=== PATIENT | female | born 1940 | race Caucasian/White ===

== ENCOUNTER 2020-06-03 12:11 | Inpatient (IN) | payer OTHER ==
[2020-06-03] MEDS ORDERED: Sodium Chloride 0.9% 2.5 ML Syringe FLUSH PRN (12:34)
[2020-06-03] MEDS ORDERED: Sodium Chloride 0.9% 10 ML Syringe FLUSH PRN (12:34)
--- NOTE | 2020-06-03 12:34 | EDM.PDOC ---
ED HPI GENERAL MEDICAL PROBLEM - General Chief Complaint: Respiratory Problem Stated Complaint: RESPIRATORY REFFERAL Time Seen by Provider: 06/03/20 12:12 Source of Information: Reports: Patient History Limitations: Reports: No Limitations - History of Present Illness INITIAL COMMENTS - FREE TEXT/NARRATIVE: HISTORY AND PHYSICAL: History of present illness: Patient is a 79-year-old female who presents to the emergency room with complaints of hypoxia and diarrhea. She was exposed to COVID-19 last week and had been seen in the ED in [facility] (she had a negative antibody test). Over the past few days she has had diarrhea (3-4 episodes per day) and felt generally unwell. Today she presented to our respiratory clinic and had an oxygen saturation of 89% on room air. They recommended that she come to the emergency room for evaluation. Patient states she does have oxygen at home, does use 2 L at nighttime as needed. Patient denies any fever, chills, headache, change in vision, syncope or near syncope. Denies any chest pain, back pain, shortness of breath or cough. Denies any abdominal pain, nausea, vomiting, constipation or dysuria. Has not noted any blood in urine or stool. Patient has been eating and drinking appropriately. I was able to obtain medical records from [facility]. Patient was seen and evaluated there on 05/31/2020. It is noted that the patient is currently living in [place] but in [facility] visiting family. Due to the COVID pandemic she has been residing in [place] with her daughter until she is able to travel back to [place]. May 15 she was treated for a right middle lobe pneumonia with clindamycin and azithromycin (unsure if she is still taking medication for this or if she finished). Past medical history of congestive heart failure, COPD with oxygen dependent (has concentrator at home), diabetes, hypertension, coronary artery disease, CVA and elevated cholesterol. Review of systems: As per history of present illness and below otherwise all systems reviewed and negative. Past medical history: As per history of present illness and as reviewed below otherwise noncontributory. Surgical history: As per history of present illness and as reviewed below otherwise noncontributory. Social history: See social history for further information Family history: As per history of present illness and as reviewed below otherwise noncontributory. Physical exam: General: Well developed and well nourished 79 year old female. Alert and orientated x 3. Very hard of hearing. Nontoxic in appearance and in no acute distress. Vital signs are stable and have been reviewed by me. Nursing notes were reviewed. HEENT: Atraumatic, normocephalic, pupils equal and reactive bilaterally, negative for conjunctival pallor or scleral icterus, mucous membranes moist, [place]ANGE[place] (wears hearing aid), throat clear, neck supple, nontender, trachea midline. No drooling or trismus noted. No meningeal signs. No hot potato voice noted. Lungs: Diminished to auscultation, breath sounds equal bilaterally, chest nontender. Normal work of breathing, no accessory muscles used. Heart: S1S2, regular rate and rhythm without overt murmur Abdomen: Soft, nondistended, nontender. Negative for masses or hepatosplenomegaly. Negative for costovertebral tenderness. Pelvis: Stable nontender. Skin: Intact, warm, dry. No lesions or rashes noted. Hematologic: No petechiae or purpra. Mucosa appropriate color and normal nail bed color and refill. Extremities: Atraumatic, moves all extremities per self without difficulty or d eficits, negative for cords or calf pain. Neurovascular unremarkable. Neuro: Awake, alert, oriented. Cranial nerves II through XII unremarkable. Cerebellum unremarkable. Motor and sensory unremarkable throughout. Exam nonfocal. Psychiatric: Mood and affect are appropriate. Normal thought process. Answering questions appropriately. Notes: X-ray shows mild atelectasis and mild patchy airspace disease in the lower left lung, favor pneumonia. Patient recently completed Clindamycin and Zithromycin for pneumonia; unsure if x-ray shows resolving pneumonia or failed outpatient therapy. Patient is unsure if she is still taking medication for this or if she finished. D.Dimer is slightly elevated; with CT angio chest to rule out PE. Patient tested positive for COVID-19 today. Lab work is otherwise unremarkable at this time. CT of the chest shows no evidence of pulmonary embolism. There is extensive interstitial groundglass and airspace opacities of bilateral hemithoraces cystic structure is noted in the paratracheal space. I have talked with the patient about today's findings, in addition to providing specific details for plan of care. She is agreeable to admission. She has been stable during her visit while on oxygen. Dr. Hernandez was consulted and is agreeable for admission for treatment of her hypoxemia and COVID-19. Diagnostics: CBC, CMP, Troponin, EKG, CXR, D.Dimer Therapeutics: Oxygen, dexamethasone Impression: COVID 19 Hypoxemia Plan: Inpatient admission with telemetry. Definitive disposition and diagnosis as appropriate pending reevaluation and review of above. - Related Data Allergies Allergy/AdvReac Type Severity Reaction Status Date / Time atorvastatin Allergy Other Verified 06/03/20 14:31 ED ROS GENERAL - Review of Systems Review Of Systems: Comprehensive ROS is negative, except as noted in HPI. ED EXAM, GENERAL - Physical Exam Exam: See Below (See dictation) Course - Vital Signs Last Recorded V/S: Last Vital Signs Temp 96.4 F L 06/03/20 12:21 Pulse 68 06/03/20 15:03 Resp 18 06/03/20 15:03 BP 150/63 H 06/03/20 15:03 Pulse Ox 95 06/03/20 15:03 - Orders/Labs/Meds Orders: Active Orders 24 hr Category Date Time Status Sodium Chloride 0.9% [Saline Flush] Med 06/03/20 12:34 Active 10 ml FLUSH ASDIRECTED PRN Sodium Chloride 0.9% [Saline Flush] Med 06/03/20 12:34 Active 2.5 ml FLUSH ASDIRECTED PRN Saline Lock Insert [OM.PC] Stat Oth 06/03/20 12:34 Ordered Medication Orders Sodium Chloride (Saline Flush) 10 ml FLUSH ASDIRECTED PRN PRN Reason: Keep Vein Open Last Admin: 06/03/20 12:57 Dose: 10 ml Documented by: ISABEL Sodium Chloride (Saline Flush) 2.5 ml FLUSH ASDIRECTED PRN PRN Reason: Keep Vein Open Last Admin: 06/03/20 12:57 Dose: 2.5 ml Documented by: ISABEL Labs: Laboratory Tests 06/03/20 06/03/20 06/03/20 Range/Units 12:28 13:35 13:35 WBC 4.22 (4.0-11.0) K/uL RBC 4.07 L (4.30-5.90) M/uL Hgb 11.3 L (12.0-16.0) g/dL Hct 36.1 (36.0-46.0) % MCV 88.7 (80.0-98.0) fL MCH 27.8 (27.0-32.0) pg MCHC 31.3 (31.0-37.0) g/dL RDW Std Deviation 49.3 (28.0-62.0) fl RDW Coeff of Geraldine 15 (11.0-15.0) % Plt Count 347 (150-400) K/uL MPV 10.70 (7.40-12.00) fL Neut % (Auto) 61.7 (48.0-80.0) % Lymph % (Auto) 17.5 (16.0-40.0) % [place] % (Auto) 18.2 H (0.0-15.0) % Eos % (Auto) 2.4 (0.0-7.0) % Baso % (Auto) 0.2 (0.0-1.5) % Neut # (Auto) 2.6 (1.4-5.7) K/uL Lymph # (Auto) 0.7 (0.6-2.4) K/uL [place] # (Auto) 0.8 (0.0-0.8) K/uL Eos # (Auto) 0.1 (0.0-0.7) K/uL Baso # (Auto) 0.0 (0.0-0.1) K/uL Nucleated RBC % 0.0 /100WBC Nucleated RBCs # 0 K/uL D-Dimer, Quantitative 0.65 H (0.0-0.50) mg/L FEU Sodium 138 (136-145) mmol/L Potassium 4.4 (3.5-5.1) mmol/L Chloride 102 (98-107) mmol/L Carbon Dioxide 27.1 (21.0-32.0) mmol/L BUN 18 (7.0-18.0) mg/dL Creatinine 1.0 (0.6-1.0) mg/dL Est Cr Clr Drug Dosing 32.77 mL/min Estimated GFR (MDRD) 53.5 ml/min Glucose 91 (74-106) mg/dL Calcium 10.2 H (8.5-10.1) mg/dL Total Bilirubin 0.3 (0.2-1.0) mg/dL AST 15 (15-37) IU/L ALT 12 L (14-63) IU/L Alkaline Phosphatase 35 L (46-116) U/L Troponin I < 0.050 (0.000-0.056) ng/mL Total Protein 8.1 (6.4-8.2) g/dL Albumin 3.2 L (3.4-5.0) g/dL Globulin 4.9 H (2.6-4.0) g/dL Albumin/Globulin Ratio 0.7 L (0.9-1.6) Urine Color Urine Appearance Urine pH (5.0-8.0) Ur Specific [place] (1.001-1.035) Urine Protein (NEGATIVE) mg/dL Urine Glucose (UA) (NEGATIVE) mg/dL Urine Ketones (NEGATIVE) mg/dL Urine Occult Blood (NEGATIVE) Urine Nitrite (NEGATIVE) Urine Bilirubin (NEGATIVE) Urine Urobilinogen (<2.0) EU/dL Ur Leukocyte Esterase (NEGATIVE) Urine RBC (0-2/HPF) Urine WBC (0-5/HPF) Ur Epithelial Cells (NONE-FEW) Amorphous Sediment (NEGATIVE) Urine Bacteria (NEGATIVE) Urine Mucus (NONE-MOD) SARS-CoV-2 RNA (CINTIA) (NEGATIVE) 06/03/20 06/03/20 Range/Units 13:35 14:19 WBC (4.0-11.0) K/uL RBC (4.30-5.90) M/uL Hgb (12.0-16.0) g/dL Hct (36.0-46.0) % MCV (80.0-98.0) fL MCH (27.0-32.0) pg MCHC (31.0-37.0) g/dL RDW Std Deviation (28.0-62.0) fl RDW Coeff of Geraldine (11.0-15.0) % Plt Count (150-400) K/uL MPV (7.40-12.00) fL Neut % (Auto) (48.0-80.0) % Lymph % (Auto) (16.0-40.0) % [place] % (Auto) (0.0-15.0) % Eos % (Auto) (0.0-7.0) % Baso % (Auto) (0.0-1.5) % Neut # (Auto) (1.4-5.7) K/uL Lymph # (Auto) (0.6-2.4) K/uL [place] # (Auto) (0.0-0.8) K/uL Eos # (Auto) (0.0-0.7) K/uL Baso # (Auto) (0.0-0.1) K/uL Nucleated RBC % /100WBC Nucleated RBCs # K/uL D-Dimer, Quantitative (0.0-0.50) mg/L FEU Sodium (136-145) mmol/L Potassium (3.5-5.1) mmol/L Chloride (98-107) mmol/L Carbon Dioxide (21.0-32.0) mmol/L BUN (7.0-18.0) mg/dL Creatinine (0.6-1.0) mg/dL Est Cr Clr Drug Dosing mL/min Estimated GFR (MDRD) ml/min Glucose (74-106) mg/dL Calcium (8.5-10.1) mg/dL Total Bilirubin (0.2-1.0) mg/dL AST (15-37) IU/L ALT (14-63) IU/L Alkaline Phosphatase (46-116) U/L Troponin I (0.000-0.056) ng/mL Total Protein (6.4-8.2) g/dL Albumin (3.4-5.0) g/dL Globulin (2.6-4.0) g/dL Albumin/Globulin Ratio (0.9-1.6) Urine Color YELLOW Urine Appearance CLEAR Urine pH 6.0 (5.0-8.0) Ur Specific [place] 1.020 (1.001-1.035) Urine Protein NEGATIVE (NEGATIVE) mg/dL Urine Glucose (UA) NEGATIVE (NEGATIVE) mg/dL Urine Ketones NEGATIVE (NEGATIVE) mg/dL Urine Occult Blood TRACE-INTACT H (NEGATIVE) Urine Nitrite NEGATIVE (NEGATIVE) Urine Bilirubin NEGATIVE (NEGATIVE) Urine Urobilinogen 0.2 (<2.0) EU/dL Ur Leukocyte Esterase NEGATIVE (NEGATIVE) Urine RBC 0-2 (0-2/HPF) Urine WBC 0-1 (0-5/HPF) Ur Epithelial Cells OCCASIONAL (NONE-FEW) Amorphous Sediment RARE (NEGATIVE) Urine Bacteria FEW (NEGATIVE) Urine Mucus RARE (NONE-MOD) SARS-CoV-2 RNA (CINTIA) POSITIVE H (NEGATIVE) Meds: Medications Generic Name Dose Route Start Last Admin Trade Name Emileq PRN Reason Stop Dose Admin Sodium Chloride 10 ml 06/03/20 12:34 06/03/20 12:57 Saline Flush FLUSH 10 ml ASDIRECTED PRN Administration Keep Vein Open Sodium Chloride 2.5 ml 06/03/20 12:34 06/03/20 12:57 Saline Flush FLUSH 2.5 ml ASDIRECTED PRN Administration Keep Vein Open Discontinued Medications Generic Name Dose Route Start Last Admin Trade Name Gaurav PRN Reason Stop Dose Admin Dexamethasone 6 mg 06/03/20 16:07 06/03/20 16:45 Decadron IVPUSH 06/03/20 16:08 6 mg ONETIME ONE Administration Iopamidol 75 ml 06/03/20 17:04 06/03/20 17:04 Isovue Multipack-370 (76%) IVPUSH 06/03/20 17:05 75 ml ONETIME ONE Administration Departure - Departure Time of Disposition: 18:10 Disposition: Admitted As Inpatient 66 Clinical Impression: COVID-19, Hypoxemia - Discharge Information Sepsis Event Note (ED) - Focused Exam Vital Signs: Vital Signs Temp Pulse Resp BP Pulse Ox 06/03/20 15:03 68 18 150/63 H 95 06/03/20 14:11 65 18 140/62 98 06/03/20 12:38 98 06/03/20 12:21 96.4 F L 64 20 89 L - My Orders Last 24 Hours: My Active Orders 06/03/20 12:34 Sodium Chloride 0.9% [Saline Flush] 10 ml FLUSH ASDIRECTED PRN Sodium Chloride 0.9% [Saline Flush] 2.5 ml FLUSH ASDIRECTED PRN Saline Lock Insert [OM.PC] Stat - Assessment/Plan Last 24 Hours: My Active Orders 06/03/20 12:34 Sodium Chloride 0.9% [Saline Flush] 10 ml FLUSH ASDIRECTED PRN Sodium Chloride 0.9% [Saline Flush] 2.5 ml FLUSH ASDIRECTED PRN Saline Lock Insert [OM.PC] Stat
--- NOTE | 2020-06-03 13:34 | PCM.SN.2 ---
#1 Interpretation EKG Date: 06/03/20 Time: 12:25 Rhythm: NSR Rate (Beats/Min): 64 [place]: Normal P-Wave: Present QRS: Normal ST-T: Normal QT: Normal OH/PQ Interval: 219
--- NOTE | 2020-06-03 13:42 | CR ---
HISTORY: Chest pain. TECHNIQUE: Portable frontal view the chest. COMPARISON: None. FINDINGS: Mild patchy airspace opacities in the lower left lung with mild atelectasis. Mild atelectasis or airspace disease in the right lung base. No pleural effusion or pneumothorax. Pulmonary vasculature is within normal limits. Cardiomediastinal silhouette is upper normal size. Right shoulder arthroplasty. Healed right rib fractures. IMPRESSION: Mild atelectasis and mild patchy airspace disease, favor pneumonia. Dictated by Wing Neumann MD @ Jun 03 2020 1:34PM Signed by Dr. Wing Neumann @ Jun 03 2020 1:41PM
[2020-06-03 14:20] LABS: BLOOD UREA NITROGEN,BUN 18 mg/dL (7.0-18.0); CARBON DIOXIDE,CO2 27.1 mmol/L (21.0-32.0); CHLORIDE,CL 102 mmol/L (98-107); GLUCOSE RANDOM 91 mg/dL (74-106); POTASSIUM,K 4.4 mmol/L (3.5-5.1); SODIUM,NA 138 mmol/L (136-145)
[2020-06-03] MEDS ORDERED: Dexamethasone 10 MG/ML SDV IVPUSH ONE (16:07)
[2020-06-03] MEDS ORDERED: Iopamidol 755 MG/ML 500 ML Multipack Bottle IVPUSH ONE (17:04)
--- NOTE | 2020-06-03 17:53 | CT ---
Indication: Elevated D-dimer, hypoxia, positive for zamorano virus 19 Technique: Volumetric multidetector CT images of the chest were obtained after the administration of IV contrast. 75 cc Isovue 370 low osmolar Comparison: None available. Findings: The thoracic inlet is somewhat limited secondary to beam hardening artifact from a right shoulder arthroplasty. The thoracic aorta is non aneurysmal with scattered atherosclerotic calcifications. There is some a tortuous origin of the left subclavian artery. There is no central filling defect to suggest pulmonary embolism. There are reactive mediastinal and hilar lymph nodes appreciated with low-density fluid seen within the paratracheal space which could represent a cystic lesion versus is a markedly enlarged lymph node. There is traction bronchiectasis predominantly within the lung bases. There are extensive interstitial, ground-glass and airspace opacities seen throughout the bilateral hemithoraces commensurate with history of viral infection. There is no pneumothorax or pleural effusion. There is no evidence of pulmonary mass or suspicious pulmonary nodule. The partially visualized upper abdomen demonstrates a moderate hiatal hernia. There is demonstration of a fat containing adrenal gland mass in the left adrenal gland which may represent a myelolipoma. There is hepatomegaly and hepatic steatosis of the partially visualized liver. The thoracic vertebral body heights are grossly maintained with mild multi-level degenerative disc disease. There is likely a hemangioma within the T6 level. Impression: No evidence of pulmonary embolus. Extensive interstitial, ground-glass, and airspace opacities of the bilateral hemithoraces commensurate with viral infection. 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 There are reactive lymph nodes seen throughout the mediastinum and veronica. Please note that all CT scans at this facility use dose modulation, iterative reconstruction, and/or weight-based dosing when appropriate to reduce radiation dose to as low as reasonably achievable. Dictated by Richard Salas MD @ Jun 03 2020 5:24PM Signed by Dr. Richard Salas @ Jun 03 2020 5:50PM
[2020-06-03] MEDS ORDERED: REMDESIVIR 200 MG in Sodium Chloride 0.9% 250 ML IV ONE (21:17)
[2020-06-03] MEDS ORDERED: Glucagon,Human Recombinant 1 MG Vial IM PRN (21:18)
[2020-06-03] MEDS ORDERED: 50% Dextrose in Water 50 ML Syringe IV PRN (21:18)
--- NOTE | 2020-06-03 21:25 | PCM.PN ---
- General Info Date of Service: 06/03/20 - Patient Data Vitals - Most Recent: Last Vital Signs Temp 35.8 C L 06/03/20 12:21 Pulse 68 06/03/20 15:03 Resp 18 06/03/20 15:03 BP 150/63 H 06/03/20 15:03 Pulse Ox 95 06/03/20 15:03 Weight - Most Recent: 64 kg Lab Results Last 24 Hours: Laboratory Results - last 24 hr 06/03/20 06/03/20 06/03/20 Range/Units 12:28 13:35 13:35 WBC 4.22 (4.0-11.0) K/uL RBC 4.07 L (4.30-5.90) M/uL Hgb 11.3 L (12.0-16.0) g/dL Hct 36.1 (36.0-46.0) % MCV 88.7 (80.0-98.0) fL MCH 27.8 (27.0-32.0) pg MCHC 31.3 (31.0-37.0) g/dL RDW Std Deviation 49.3 (28.0-62.0) fl RDW Coeff of Geraldine 15 (11.0-15.0) % Plt Count 347 (150-400) K/uL MPV 10.70 (7.40-12.00) fL Neut % (Auto) 61.7 (48.0-80.0) % Lymph % (Auto) 17.5 (16.0-40.0) % [place] % (Auto) 18.2 H (0.0-15.0) % Eos % (Auto) 2.4 (0.0-7.0) % Baso % (Auto) 0.2 (0.0-1.5) % Neut # (Auto) 2.6 (1.4-5.7) K/uL Lymph # (Auto) 0.7 (0.6-2.4) K/uL [place] # (Auto) 0.8 (0.0-0.8) K/uL Eos # (Auto) 0.1 (0.0-0.7) K/uL Baso # (Auto) 0.0 (0.0-0.1) K/uL Nucleated RBC % 0.0 /100WBC Nucleated RBCs # 0 K/uL D-Dimer, Quantitative 0.65 H (0.0-0.50) mg/L FEU Sodium 138 (136-145) mmol/L Potassium 4.4 (3.5-5.1) mmol/L Chloride 102 (98-107) mmol/L Carbon Dioxide 27.1 (21.0-32.0) mmol/L BUN 18 (7.0-18.0) mg/dL Creatinine 1.0 (0.6-1.0) mg/dL Est Cr Clr Drug Dosing 32.77 mL/min Estimated GFR (MDRD) 53.5 ml/min Glucose 91 (74-106) mg/dL Calcium 10.2 H (8.5-10.1) mg/dL Total Bilirubin 0.3 (0.2-1.0) mg/dL AST 15 (15-37) IU/L ALT 12 L (14-63) IU/L Alkaline Phosphatase 35 L (46-116) U/L Troponin I < 0.050 (0.000-0.056) ng/mL Total Protein 8.1 (6.4-8.2) g/dL Albumin 3.2 L (3.4-5.0) g/dL Globulin 4.9 H (2.6-4.0) g/dL Albumin/Globulin Ratio 0.7 L (0.9-1.6) Urine Color Urine Appearance Urine pH (5.0-8.0) Ur Specific [place] (1.001-1.035) Urine Protein (NEGATIVE) mg/dL Urine Glucose (UA) (NEGATIVE) mg/dL Urine Ketones (NEGATIVE) mg/dL Urine Occult Blood (NEGATIVE) Urine Nitrite (NEGATIVE) Urine Bilirubin (NEGATIVE) Urine Urobilinogen (<2.0) EU/dL Ur Leukocyte Esterase (NEGATIVE) Urine RBC (0-2/HPF) Urine WBC (0-5/HPF) Ur Epithelial Cells (NONE-FEW) Amorphous Sediment (NEGATIVE) Urine Bacteria (NEGATIVE) Urine Mucus (NONE-MOD) SARS-CoV-2 RNA (CINTIA) (NEGATIVE) 06/03/20 06/03/20 Range/Units 13:35 14:19 WBC (4.0-11.0) K/uL RBC (4.30-5.90) M/uL Hgb (12.0-16.0) g/dL Hct (36.0-46.0) % MCV (80.0-98.0) fL MCH (27.0-32.0) pg MCHC (31.0-37.0) g/dL RDW Std Deviation (28.0-62.0) fl RDW Coeff of Geraldine (11.0-15.0) % Plt Count (150-400) K/uL MPV (7.40-12.00) fL Neut % (Auto) (48.0-80.0) % Lymph % (Auto) (16.0-40.0) % [place] % (Auto) (0.0-15.0) % Eos % (Auto) (0.0-7.0) % Baso % (Auto) (0.0-1.5) % Neut # (Auto) (1.4-5.7) K/uL Lymph # (Auto) (0.6-2.4) K/uL [place] # (Auto) (0.0-0.8) K/uL Eos # (Auto) (0.0-0.7) K/uL Baso # (Auto) (0.0-0.1) K/uL Nucleated RBC % /100WBC Nucleated RBCs # K/uL D-Dimer, Quantitative (0.0-0.50) mg/L FEU Sodium (136-145) mmol/L Potassium (3.5-5.1) mmol/L Chloride (98-107) mmol/L Carbon Dioxide (21.0-32.0) mmol/L BUN (7.0-18.0) mg/dL Creatinine (0.6-1.0) mg/dL Est Cr Clr Drug Dosing mL/min Estimated GFR (MDRD) ml/min Glucose (74-106) mg/dL Calcium (8.5-10.1) mg/dL Total Bilirubin (0.2-1.0) mg/dL AST (15-37) IU/L ALT (14-63) IU/L Alkaline Phosphatase (46-116) U/L Troponin I (0.000-0.056) ng/mL Total Protein (6.4-8.2) g/dL Albumin (3.4-5.0) g/dL Globulin (2.6-4.0) g/dL Albumin/Globulin Ratio (0.9-1.6) Urine Color YELLOW Urine Appearance CLEAR Urine pH 6.0 (5.0-8.0) Ur Specific [place] 1.020 (1.001-1.035) Urine Protein NEGATIVE (NEGATIVE) mg/dL Urine Glucose (UA) NEGATIVE (NEGATIVE) mg/dL Urine Ketones NEGATIVE (NEGATIVE) mg/dL Urine Occult Blood TRACE-INTACT H (NEGATIVE) Urine Nitrite NEGATIVE (NEGATIVE) Urine Bilirubin NEGATIVE (NEGATIVE) Urine Urobilinogen 0.2 (<2.0) EU/dL Ur Leukocyte Esterase NEGATIVE (NEGATIVE) Urine RBC 0-2 (0-2/HPF) Urine WBC 0-1 (0-5/HPF) Ur Epithelial Cells OCCASIONAL (NONE-FEW) Amorphous Sediment RARE (NEGATIVE) Urine Bacteria FEW (NEGATIVE) Urine Mucus RARE (NONE-MOD) SARS-CoV-2 RNA (CINTIA) POSITIVE H (NEGATIVE) Med Orders - Current: Current Medications Dexamethasone (Dexamethasone) 6 mg PO Q24H YUDI Dextrose/Water (Dextrose 50% In Water) 50 ml IV ASDIRECTED PRN PRN Reason: Hypoglycemia Glucagon (Glucagen) 1 mg IM ASDIRECTED PRN PRN Reason: Hypoglycemia Remdesivir 200 mg/ Sodium (Chloride) 250 mls @ 250 mls/hr IV ONETIME ONE Stop: 06/03/20 21:18 Remdesivir 100 mg/ Sodium (Chloride) 100 mls @ 100 mls/hr IV Q24H [facility] Stop: 06/07/20 22:29 Insulin Aspart (Novolog) 0 unit SUBCUT TIDAC [facility]; Protocol Sodium Chloride (Saline Flush) 10 ml FLUSH ASDIRECTED PRN PRN Reason: Keep Vein Open Last Admin: 06/03/20 12:57 Dose: 10 ml Documented by: Sodium Chloride (Saline Flush) 2.5 ml FLUSH ASDIRECTED PRN PRN Reason: Keep Vein Open Last Admin: 06/03/20 12:57 Dose: 2.5 ml Documented by: Discontinued Medications Dexamethasone (Decadron) 6 mg IVPUSH ONETIME ONE Stop: 06/03/20 16:08 Last Admin: 06/03/20 16:45 Dose: 6 mg Documented by: Iopamidol (Isovue Multipack-370 (76%)) 75 ml IVPUSH ONETIME ONE Stop: 06/03/20 17:05 Last Admin: 06/03/20 17:04 Dose: 75 ml Documented by: - Exam General: Alert, Oriented Lungs: Clear to Auscultation, Normal Respiratory Effort Cardiovascular: Regular Rate, Regular Rhythm GI/Abdominal Exam: Soft, Non-Tender, No Distention Extremities: Non-Tender, No Pedal Edema Skin: Warm, Dry, Intact Neurological: No New Focal Deficit Sepsis Event Note - Evaluation Sepsis Screening Result: No Definite Risk - Focused Exam Vital Signs: Vital Signs Temp Pulse Resp BP Pulse Ox 06/03/20 15:03 68 18 150/63 H 95 06/03/20 14:11 65 18 140/62 98 06/03/20 12:38 98 06/03/20 12:21 35.8 C L 64 20 89 L - Problem List Review Problem List Initiated/Reviewed/Updated: Yes - My Orders Last 24 Hours: My Active Orders 06/03/20 Breakfast [employer] Diet [DIET] 06/03/20 21:17 Remdesivir 200 mg Sodium Chloride 0.9% [Normal Saline] 250 ml IV ONETIME 06/03/20 21:18 Blood Glucose Check, Bedside [RC] TIDAC HEPATIC FUNCTION PANEL,HFP [CHEM] Stat Dextrose 50% in Water 50 ml IV ASDIRECTED PRN Glucagon,Human Recombinant [GlucaGen] 1 mg IM ASDIRECTED PRN 06/03/20 21:19 Antiembolic Devices [RC] PER UNIT ROUTINE Oxygen Therapy [RC] PRN Up ad [place] [RC] ASDIRECTED VTE/DVT Education [RC] PER UNIT ROUTINE Vital Signs [RC] Q4H Sequential Compression Device [OM.PC] Per Unit Routine Resuscitation Status Routine 06/03/20 21:30 dexAMETHasone 6 mg PO Q24H 06/04/20 05:11 BASIC METABOLIC PANEL,BMP [CHEM] AM CBC WITH AUTO DIFF [HEME] AM 06/04/20 07:30 Insulin Aspart [NovoLOG] See Protocol SUBCUT TIDAC 06/04/20 21:30 HEPATIC FUNCTION PANEL,HFP [CHEM] DAILY Remdesivir 100 mg Sodium Chloride 0.9% [Normal Saline] 100 ml IV Q24H 06/05/20 21:30 HEPATIC FUNCTION PANEL,HFP [CHEM] DAILY 06/06/20 21:30 HEPATIC FUNCTION PANEL,HFP [CHEM] DAILY 06/07/20 21:30 HEPATIC FUNCTION PANEL,HFP [CHEM] DAILY - Assessment Assessment:: 79 yo female admitted for COVID1-19. We will treat with dexamtheason, Remdesivir, and prophylactic lovenox. Patient was explaned the EUA of remdesivir and its potential side effects and consents to its use. DM: on ssi HTN: will try to obtain home med list.
--- NOTE | 2020-06-03 21:26 | PCM.HP.2 ---
H&P History of Present Illness - General Date of Service: 06/03/20 Admit Problem/Dx: Admission Diagnosis/Problem Admission Diagnosis/Problem Hypoxemia requiring supplemental oxygen - History of Present Illness Initial Comments - Free Text/Narative: 79 yo female with pmh of DM, HTN who presents with two week history of cough shortness of breath, and fevers. IN the ED she was noted to be hypoxic requiring two liters NC. She tested positive for COVID. CT angio was negative for PE but showed bilateral ground glass opacities. - Related Data Allergies/Adverse Reactions: Allergies Allergy/AdvReac Type Severity Reaction Status Date / Time atorvastatin Allergy Other Verified 06/03/20 14:31 Past Medical History - Past Health History Medical/Surgical History: Denies Medical/Surgical History HEENT History: Reports: Cataract, Hard of Hearing, Impaired Vision, Other (See Below) Other HEENT History: WEARS GLASSES Cardiovascular History: Reports: Hypertension Respiratory History: Reports: COPD, Pneumonia, Recurrent, Other (See Below) Other Respiratory History: CPAP at night, recomende home 02 x 24hrs [employer] History: Reports: Psychiatric History: Reports: None Endocrine/Metabolic History: Reports: Diabetes, Type II Insulin Pump Model and [place]: nO Oncologic (Cancer) History: Reports: Other (See Below) - Infectious Disease History Infectious Disease History: Reports: Chicken Pox - Past Surgical History HEENT Surgical History: Reports: Eye Surgery, Other (See Below) Other HEENT Surgeries/Procedures: UNABLE TO RECALL Cardiovascular Surgical History: Reports: None Endocrine Surgical History: Reports: None Oncologic Surgical History: Reports: None Social & Family History - Family History Family Medical History: No Pertinent Family History - Tobacco Use Tobacco Use Status *Q: Never Tobacco User Second Hand Smoke Exposure: No - Caffeine Use Caffeine Use: Reports: None - Recreational Drug Use Recreational Drug Use: No H&P Review of Systems - Review of Systems: Review Of Systems: Comprehensive ROS is negative, except as noted in HPI. Exam - Exam Exam: See Below - Vital Signs Vital Signs: Last Vital Signs Temp 35.8 C L 06/03/20 12:21 Pulse 68 06/03/20 15:03 Resp 18 06/03/20 15:03 BP 150/63 H 06/03/20 15:03 Pulse Ox 95 06/03/20 15:03 Weight: 64 kg - Exam General: Alert, Oriented HEENT: Mucosa Moist & [place] Neck: Supple Lungs: Clear to Auscultation, Normal Respiratory Effort Cardiovascular: Regular Rate, Regular Rhythm GI/Abdominal Exam: Normal Bowel Sounds, Soft, Non-Tender Extremities: No Pedal Edema Skin: Warm, Dry, Intact Neurological: No: Focal Deficit - Patient Data Lab Results Last 24 hrs: Laboratory Results - last 24 hr 06/03/20 06/03/20 06/03/20 Range/Units 12:28 13:35 13:35 WBC 4.22 (4.0-11.0) K/uL RBC 4.07 L (4.30-5.90) M/uL Hgb 11.3 L (12.0-16.0) g/dL Hct 36.1 (36.0-46.0) % MCV 88.7 (80.0-98.0) fL MCH 27.8 (27.0-32.0) pg MCHC 31.3 (31.0-37.0) g/dL RDW Std Deviation 49.3 (28.0-62.0) fl RDW Coeff of Geraldine 15 (11.0-15.0) % Plt Count 347 (150-400) K/uL MPV 10.70 (7.40-12.00) fL Neut % (Auto) 61.7 (48.0-80.0) % Lymph % (Auto) 17.5 (16.0-40.0) % [place] % (Auto) 18.2 H (0.0-15.0) % Eos % (Auto) 2.4 (0.0-7.0) % Baso % (Auto) 0.2 (0.0-1.5) % Neut # (Auto) 2.6 (1.4-5.7) K/uL Lymph # (Auto) 0.7 (0.6-2.4) K/uL [place] # (Auto) 0.8 (0.0-0.8) K/uL Eos # (Auto) 0.1 (0.0-0.7) K/uL Baso # (Auto) 0.0 (0.0-0.1) K/uL Nucleated RBC % 0.0 /100WBC Nucleated RBCs # 0 K/uL D-Dimer, Quantitative 0.65 H (0.0-0.50) mg/L FEU Sodium 138 (136-145) mmol/L Potassium 4.4 (3.5-5.1) mmol/L Chloride 102 (98-107) mmol/L Carbon Dioxide 27.1 (21.0-32.0) mmol/L BUN 18 (7.0-18.0) mg/dL Creatinine 1.0 (0.6-1.0) mg/dL Est Cr Clr Drug Dosing 32.77 mL/min Estimated GFR (MDRD) 53.5 ml/min Glucose 91 (74-106) mg/dL Calcium 10.2 H (8.5-10.1) mg/dL Total Bilirubin 0.3 (0.2-1.0) mg/dL AST 15 (15-37) IU/L ALT 12 L (14-63) IU/L Alkaline Phosphatase 35 L (46-116) U/L Troponin I < 0.050 (0.000-0.056) ng/mL Total Protein 8.1 (6.4-8.2) g/dL Albumin 3.2 L (3.4-5.0) g/dL Globulin 4.9 H (2.6-4.0) g/dL Albumin/Globulin Ratio 0.7 L (0.9-1.6) Urine Color Urine Appearance Urine pH (5.0-8.0) Ur Specific [place] (1.001-1.035) Urine Protein (NEGATIVE) mg/dL Urine Glucose (UA) (NEGATIVE) mg/dL Urine Ketones (NEGATIVE) mg/dL Urine Occult Blood (NEGATIVE) Urine Nitrite (NEGATIVE) Urine Bilirubin (NEGATIVE) Urine Urobilinogen (<2.0) EU/dL Ur Leukocyte Esterase (NEGATIVE) Urine RBC (0-2/HPF) Urine WBC (0-5/HPF) Ur Epithelial Cells (NONE-FEW) Amorphous Sediment (NEGATIVE) Urine Bacteria (NEGATIVE) Urine Mucus (NONE-MOD) SARS-CoV-2 RNA (CINTIA) (NEGATIVE) 06/03/20 06/03/20 Range/Units 13:35 14:19 WBC (4.0-11.0) K/uL RBC (4.30-5.90) M/uL Hgb (12.0-16.0) g/dL Hct (36.0-46.0) % MCV (80.0-98.0) fL MCH (27.0-32.0) pg MCHC (31.0-37.0) g/dL RDW Std Deviation (28.0-62.0) fl RDW Coeff of Geraldine (11.0-15.0) % Plt Count (150-400) K/uL MPV (7.40-12.00) fL Neut % (Auto) (48.0-80.0) % Lymph % (Auto) (16.0-40.0) % [place] % (Auto) (0.0-15.0) % Eos % (Auto) (0.0-7.0) % Baso % (Auto) (0.0-1.5) % Neut # (Auto) (1.4-5.7) K/uL Lymph # (Auto) (0.6-2.4) K/uL [place] # (Auto) (0.0-0.8) K/uL Eos # (Auto) (0.0-0.7) K/uL Baso # (Auto) (0.0-0.1) K/uL Nucleated RBC % /100WBC Nucleated RBCs # K/uL D-Dimer, Quantitative (0.0-0.50) mg/L FEU Sodium (136-145) mmol/L Potassium (3.5-5.1) mmol/L Chloride (98-107) mmol/L Carbon Dioxide (21.0-32.0) mmol/L BUN (7.0-18.0) mg/dL Creatinine (0.6-1.0) mg/dL Est Cr Clr Drug Dosing mL/min Estimated GFR (MDRD) ml/min Glucose (74-106) mg/dL Calcium (8.5-10.1) mg/dL Total Bilirubin (0.2-1.0) mg/dL AST (15-37) IU/L ALT (14-63) IU/L Alkaline Phosphatase (46-116) U/L Troponin I (0.000-0.056) ng/mL Total Protein (6.4-8.2) g/dL Albumin (3.4-5.0) g/dL Globulin (2.6-4.0) g/dL Albumin/Globulin Ratio (0.9-1.6) Urine Color YELLOW Urine Appearance CLEAR Urine pH 6.0 (5.0-8.0) Ur Specific [place] 1.020 (1.001-1.035) Urine Protein NEGATIVE (NEGATIVE) mg/dL Urine Glucose (UA) NEGATIVE (NEGATIVE) mg/dL Urine Ketones NEGATIVE (NEGATIVE) mg/dL Urine Occult Blood TRACE-INTACT H (NEGATIVE) Urine Nitrite NEGATIVE (NEGATIVE) Urine Bilirubin NEGATIVE (NEGATIVE) Urine Urobilinogen 0.2 (<2.0) EU/dL Ur Leukocyte Esterase NEGATIVE (NEGATIVE) Urine RBC 0-2 (0-2/HPF) Urine WBC 0-1 (0-5/HPF) Ur Epithelial Cells OCCASIONAL (NONE-FEW) Amorphous Sediment RARE (NEGATIVE) Urine Bacteria FEW (NEGATIVE) Urine Mucus RARE (NONE-MOD) SARS-CoV-2 RNA (CINTIA) POSITIVE H (NEGATIVE) Result Diagrams: 06/03/20 12:28 06/03/20 13:35 Sepsis Event Note - Evaluation Sepsis Screening Result: No Definite Risk - Focused Exam Vital Signs: Vital Signs Temp Pulse Resp BP Pulse Ox 06/03/20 15:03 68 18 150/63 H 95 06/03/20 14:11 65 18 140/62 98 06/03/20 12:38 98 06/03/20 12:21 35.8 C L 64 20 89 L Problem List Initiated/Reviewed/Updated: Yes Orders Last 24hrs: Active Orders 24 hr Category Date Time Status Admission Status [Patient Status] [ADT] Stat ADT 06/03/20 16:07 Active Antiembolic Devices [RC] PER UNIT ROUTINE Care 06/03/20 21:19 Ordered Blood Glucose Check, Bedside [RC] TIDAC Care 06/03/20 21:18 Ordered Oxygen Therapy [RC] PRN Care 06/03/20 21:19 Ordered Up ad [place] [RC] ASDIRECTED Care 06/03/20 21:19 Ordered VTE/DVT Education [RC] PER UNIT ROUTINE Care 06/03/20 21:19 Ordered Vital Signs [RC] Q4H Care 06/03/20 21:19 Ordered [place] [employer] Diet [DIET] Diet 06/03/20 Breakfast Ordered BASIC METABOLIC PANEL,BMP [CHEM] AM Lab 06/04/20 05:11 Ordered CBC WITH AUTO DIFF [HEME] AM Lab 06/04/20 05:11 Ordered HEPATIC FUNCTION PANEL,HFP [CHEM] DAILY Lab 06/04/20 21:30 Ordered HEPATIC FUNCTION PANEL,HFP [CHEM] DAILY Lab 06/05/20 21:30 Ordered HEPATIC FUNCTION PANEL,HFP [CHEM] DAILY Lab 06/06/20 21:30 Ordered HEPATIC FUNCTION PANEL,HFP [CHEM] DAILY Lab 06/07/20 21:30 Ordered HEPATIC FUNCTION PANEL,HFP [CHEM] Stat Lab 06/03/20 21:18 Ordered Dextrose 50% in Water Med 06/03/20 21:18 Ordered 50 ml IV ASDIRECTED PRN Enoxaparin [Lovenox] Med 06/03/20 21:30 Ordered 40 mg SUBCUT Q24H Glucagon,Human Recombinant [GlucaGen] Med 06/03/20 21:18 Ordered 1 mg IM ASDIRECTED PRN Insulin Aspart [NovoLOG] Med 06/04/20 07:30 Ordered See Protocol SUBCUT TIDAC Remdesivir 100 mg Med 06/04/20 21:30 Ordered Sodium Chloride 0.9% [Normal Saline] 100 ml IV Q24H Remdesivir 200 mg Med 06/03/20 21:17 Ordered Sodium Chloride 0.9% [Normal Saline] 250 ml IV ONETIME Sodium Chloride 0.9% [Saline Flush] Med 06/03/20 12:34 Active 10 ml FLUSH ASDIRECTED PRN Sodium Chloride 0.9% [Saline Flush] Med 06/03/20 12:34 Active 2.5 ml FLUSH ASDIRECTED PRN dexAMETHasone Med 06/03/20 21:30 Ordered 6 mg PO Q24H Saline Lock Insert [OM.PC] Stat Oth 06/03/20 12:34 Ordered Sequential Compression Device [OM.PC] Per Unit Routine Oth 06/03/20 21:19 Ordered Resuscitation Status Routine Resus Stat 06/03/20 21:19 Ordered Medication Orders Dexamethasone (Dexamethasone) 6 mg PO DAILY YUDI Dextrose/Water (Dextrose 50% In Water) 50 ml IV ASDIRECTED PRN PRN Reason: Hypoglycemia Enoxaparin Sodium (Lovenox) 40 mg SUBCUT BEDTIME YUDI Glucagon (Glucagen) 1 mg IM ASDIRECTED PRN PRN Reason: Hypoglycemia Remdesivir 200 mg/ Sodium (Chloride) 250 mls @ 250 mls/hr IV ONETIME ONE Stop: 06/03/20 21:18 Remdesivir 100 mg/ Sodium (Chloride) 100 mls @ 100 mls/hr IV Q24H YUDI Stop: 06/07/20 22:29 Insulin Aspart (Novolog) 0 unit SUBCUT TIDAC YUDI; Protocol Sodium Chloride (Saline Flush) 10 ml FLUSH ASDIRECTED PRN PRN Reason: Keep Vein Open Last Admin: 06/03/20 12:57 Dose: 10 ml Documented by: ISABEL Sodium Chloride (Saline Flush) 2.5 ml FLUSH ASDIRECTED PRN PRN Reason: Keep Vein Open Last Admin: 06/03/20 12:57 Dose: 2.5 ml Documented by: ISABEL Assessment/Plan Comment:: 79 yo female admitted for COVID1-19. We will treat with dexamtheason, Remdesivir, and prophylactic lovenox. Patient was explaned the EUA of remdesivir and its potential side effects and consents to its use. DM: on ssi HTN: will try to obtain home med list.
[2020-06-03] MEDS ORDERED: Enoxaparin 40 MG/0.4 ML Syringe SUBCUT SCH (21:30)
[2020-06-03 22:07] LABS: BILIRUBIN INDIRECT 0.2
[2020-06-04] MEDS ORDERED: Enoxaparin 40 MG/0.4 ML Syringe SUBCUT SCH (02:00)
[2020-06-04 06:59] LABS: CARBON DIOXIDE,CO2 25.1 mmol/L (21.0-32.0); POTASSIUM,K 4.6 mmol/L (3.5-5.1)
[2020-06-04] MEDS: Dexamethasone 4 MG Tab PO SCH (09:29)
[2020-06-04] MEDS: Enoxaparin 40 MG/0.4 ML Syringe SUBCUT SCH (09:30)
[2020-06-04] MEDS: Insulin Aspart 100 Units/ML 3 ML Pen SUBCUT SCH ×3 (09:55→17:03)
--- NOTE | 2020-06-04 14:56 | PCM.PN ---
- General Info Date of Service: 06/04/20 - Review of Systems Systems Review Comment:: feeling better, shortness of breath improving - Patient Data Vitals - Most Recent: Last Vital Signs Temp 36.1 C 06/04/20 14:00 Pulse 68 06/04/20 14:00 Resp 20 06/04/20 14:00 BP 134/66 06/04/20 14:00 Pulse Ox 92 L 06/04/20 06:05 Weight - Most Recent: 66.633 kg I&O - Last 24 Hours: Intake & Output 06/03/20 06/04/20 06/04/20 22:59 06:59 14:59 Intake Total 120 Balance 120 Lab Results Last 24 Hours: Laboratory Results - last 24 hr 06/03/20 06/04/20 06/04/20 Range/Units 21:32 06:00 06:00 WBC 2.52 L (4.0-11.0) K/uL RBC 4.21 L (4.30-5.90) M/uL Hgb 11.9 L (12.0-16.0) g/dL Hct 37.1 (36.0-46.0) % MCV 88.1 (80.0-98.0) fL MCH 28.3 (27.0-32.0) pg MCHC 32.1 (31.0-37.0) g/dL RDW Std Deviation 48.3 (28.0-62.0) fl RDW Coeff of Geraldine 15 (11.0-15.0) % Plt Count 357 (150-400) K/uL MPV 10.50 (7.40-12.00) fL Neut % (Auto) 67.5 (48.0-80.0) % Lymph % (Auto) 25.8 (16.0-40.0) % [place] % (Auto) 6.7 (0.0-15.0) % Eos % (Auto) 0.0 (0.0-7.0) % Baso % (Auto) 0.0 (0.0-1.5) % Neut # (Auto) 1.7 (1.4-5.7) K/uL Lymph # (Auto) 0.7 (0.6-2.4) K/uL [place] # (Auto) 0.2 (0.0-0.8) K/uL Eos # (Auto) 0.0 (0.0-0.7) K/uL Baso # (Auto) 0.0 (0.0-0.1) K/uL Nucleated RBC % 0.0 /100WBC Nucleated RBCs # 0 K/uL Sodium 138 (136-145) mmol/L Potassium 4.6 (3.5-5.1) mmol/L Chloride 103 (98-107) mmol/L Carbon Dioxide 25.1 (21.0-32.0) mmol/L BUN 20 H (7.0-18.0) mg/dL Creatinine 1.0 (0.6-1.0) mg/dL Est Cr Clr Drug Dosing 32.77 mL/min Estimated GFR (MDRD) 53.5 ml/min Glucose 155 H (74-106) mg/dL POC Glucose (60-110) mg/dL Calcium 9.7 (8.5-10.1) mg/dL Total Bilirubin 0.3 (0.2-1.0) mg/dL Direct Bilirubin 0.10 (0.0-0.5) mg/dL Indirect Bilirubin 0.20 AST 11 L (15-37) IU/L ALT 15 (14-63) IU/L Alkaline Phosphatase 38 L (46-116) U/L Total Protein 8.7 H (6.4-8.2) g/dL Albumin 3.5 (3.4-5.0) g/dL Globulin 5.2 H (2.6-4.0) g/dL Albumin/Globulin Ratio 0.7 L (0.9-1.6) 06/04/20 06/04/20 Range/Units 08:01 11:57 WBC (4.0-11.0) K/uL RBC (4.30-5.90) M/uL Hgb (12.0-16.0) g/dL Hct (36.0-46.0) % MCV (80.0-98.0) fL MCH (27.0-32.0) pg MCHC (31.0-37.0) g/dL RDW Std Deviation (28.0-62.0) fl RDW Coeff of Geraldine (11.0-15.0) % Plt Count (150-400) K/uL MPV (7.40-12.00) fL Neut % (Auto) (48.0-80.0) % Lymph % (Auto) (16.0-40.0) % [place] % (Auto) (0.0-15.0) % Eos % (Auto) (0.0-7.0) % Baso % (Auto) (0.0-1.5) % Neut # (Auto) (1.4-5.7) K/uL Lymph # (Auto) (0.6-2.4) K/uL [place] # (Auto) (0.0-0.8) K/uL Eos # (Auto) (0.0-0.7) K/uL Baso # (Auto) (0.0-0.1) K/uL Nucleated RBC % /100WBC Nucleated RBCs # K/uL Sodium (136-145) mmol/L Potassium (3.5-5.1) mmol/L Chloride (98-107) mmol/L Carbon Dioxide (21.0-32.0) mmol/L BUN (7.0-18.0) mg/dL Creatinine (0.6-1.0) mg/dL Est Cr Clr Drug Dosing mL/min Estimated GFR (MDRD) ml/min Glucose (74-106) mg/dL POC Glucose 181 H 161 H (60-110) mg/dL Calcium (8.5-10.1) mg/dL Total Bilirubin (0.2-1.0) mg/dL Direct Bilirubin (0.0-0.5) mg/dL Indirect Bilirubin AST (15-37) IU/L ALT (14-63) IU/L Alkaline Phosphatase (46-116) U/L Total Protein (6.4-8.2) g/dL Albumin (3.4-5.0) g/dL Globulin (2.6-4.0) g/dL Albumin/Globulin Ratio (0.9-1.6) Med Orders - Current: Current Medications Dexamethasone (Dexamethasone) 6 mg PO DAILY [facility] Last Admin: 06/04/20 09:29 Dose: 6 mg Documented by: Dextrose/Water (Dextrose 50% In Water) 50 ml IV ASDIRECTED PRN PRN Reason: Hypoglycemia Enoxaparin Sodium (Lovenox) 40 mg SUBCUT Q24H [facility] Last Admin: 06/04/20 09:30 Dose: 40 mg Documented by: Glucagon (Glucagen) 1 mg IM ASDIRECTED PRN PRN Reason: Hypoglycemia Remdesivir 100 mg/ Sodium (Chloride) 100 mls @ 100 mls/hr IV BEDTIME [facility] Stop: 06/07/20 21:59 Insulin Aspart (Novolog) 0 unit SUBCUT TIDAC [facility]; Protocol Last Admin: 06/04/20 12:05 Dose: 1 unit Documented by: Sodium Chloride (Saline Flush) 10 ml FLUSH ASDIRECTED PRN PRN Reason: Keep Vein Open Last Admin: 06/03/20 12:57 Dose: 10 ml Documented by: Sodium Chloride (Saline Flush) 2.5 ml FLUSH ASDIRECTED PRN PRN Reason: Keep Vein Open Last Admin: 06/03/20 12:57 Dose: 2.5 ml Documented by: Discontinued Medications Dexamethasone (Decadron) 6 mg IVPUSH ONETIME ONE Stop: 06/03/20 16:08 Last Admin: 06/03/20 16:45 Dose: 6 mg Documented by: Enoxaparin Sodium (Lovenox) 40 mg SUBCUT BEDTIME [facility] Enoxaparin Sodium (Lovenox) 40 mg SUBCUT 0200 [facility] Last Admin: 06/04/20 04:23 Dose: Not Given Documented by: Remdesivir 200 mg/ Sodium (Chloride) 250 mls @ 250 mls/hr IV ONETIME ONE Stop: 06/03/20 21:18 Last Admin: 06/04/20 03:57 Dose: 250 mls/hr Documented by: Iopamidol (Isovue Multipack-370 (76%)) 75 ml IVPUSH ONETIME ONE Stop: 06/03/20 17:05 Last Admin: 06/03/20 17:04 Dose: 75 ml Documented by: - Exam General: Alert, Oriented Lungs: Clear to Auscultation, Normal Respiratory Effort Cardiovascular: Regular Rate, Regular Rhythm GI/Abdominal Exam: Soft, Non-Tender, No Distention Extremities: Non-Tender, No Pedal Edema Skin: Warm, Dry, Intact Sepsis Event Note - Evaluation Sepsis Screening Result: No Definite Risk - Focused Exam Vital Signs: Vital Signs Temp Pulse Resp BP Pulse Ox 06/04/20 14:00 36.1 C 68 20 134/66 06/04/20 10:00 36.2 C 66 20 140/70 06/04/20 06:05 35.9 C L 62 20 175/75 H 92 L 06/04/20 05:52 35.9 C L 83 20 95 06/04/20 03:45 36.0 C L 67 19 191/85 H 92 L - Problem List Review Problem List Initiated/Reviewed/Updated: Yes - My Orders Last 24 Hours: My Active Orders 06/03/20 18:04 Telemetry Monitoring [Cardiac Monitoring] [RC] Q8H 06/03/20 21:18 Blood Glucose Check, Bedside [RC] TIDAC Dextrose 50% in Water 50 ml IV ASDIRECTED PRN Glucagon,Human Recombinant [GlucaGen] 1 mg IM ASDIRECTED PRN 06/03/20 21:19 Antiembolic Devices [RC] PER UNIT ROUTINE Oxygen Therapy [RC] PRN Up ad [place] [RC] ASDIRECTED VTE/DVT Education [RC] PER UNIT ROUTINE Vital Signs [RC] Q4H Sequential Compression Device [OM.PC] Per Unit Routine Resuscitation Status Routine 06/04/20 07:30 Insulin Aspart [NovoLOG] See Protocol SUBCUT TIDAC 06/04/20 09:00 Enoxaparin [Lovenox] 40 mg SUBCUT Q24H dexAMETHasone 6 mg PO DAILY 06/04/20 21:00 Remdesivir 100 mg Sodium Chloride 0.9% [Normal Saline] 100 ml IV BEDTIME 06/04/20 21:30 HEPATIC FUNCTION PANEL,HFP [CHEM] DAILY 06/05/20 05:11 BASIC METABOLIC PANEL,BMP [CHEM] AM CBC WITH AUTO DIFF [HEME] AM 06/05/20 21:30 HEPATIC FUNCTION PANEL,HFP [CHEM] DAILY 06/06/20 21:30 HEPATIC FUNCTION PANEL,HFP [CHEM] DAILY 06/07/20 21:30 HEPATIC FUNCTION PANEL,HFP [CHEM] DAILY - Plan Plan:: 79 yo female admitted for COVID1-19. We will continue dexamtheason, Remdesivir, and prophylactic lovenox. DM: on ssi NANCIE: on bipap at night
[2020-06-04] MEDS ORDERED: REMDESIVIR 100 MG in Sodium Chloride 0.9% 100 ML IV SCH (21:00)
[2020-06-04 22:20] LABS: BILIRUBIN INDIRECT 0.1
[2020-06-05 06:58] LABS: CARBON DIOXIDE,CO2 24.6 mmol/L (21.0-32.0); POTASSIUM,K 3.7 mmol/L (3.5-5.1)
[2020-06-05] MEDS: Dexamethasone 4 MG Tab PO SCH (08:42)
[2020-06-05] MEDS: Enoxaparin 40 MG/0.4 ML Syringe SUBCUT SCH (08:42)
[2020-06-05] MEDS: Insulin Aspart 100 Units/ML 3 ML Pen SUBCUT SCH ×2 (08:43→11:36)
--- NOTE | 2020-06-05 11:40 | PCM.DCSUM1 ---
Discharge Summary - Discharge Data Discharge Date: 06/05/20 Discharge Disposition: Home, Self-Care 01 Condition: Good - Referral to Home Health Primary Care Physician: PCP None - Patient Summary/Data Hospital Course: 79 yo female with pmh of DM, HTN, NANCIE who presents with two week history of cough shortness of breath, and fevers. IN the ED she was noted to be hypoxic requiring two liters NC. She tested positive for COVID. CT angio was negative for PE but showed bilateral ground glass opacities. She was treated with Remdesivir and dexamethasone for three days. Today the patient is feeling better and requesting discharge home. She is satting 94% on room air. Patient was discharged home to have follow up with the S. - Patient Instructions Notify Provider of: Fever, Increased Pain, Swelling and Redness, Nausea and/or Vomiting - Discharge Plan Forms: ED Department Discharge Referrals: PCP,None [Primary Care Provider] - - Discharge Summary/Plan Comment DC Time >30 min.: No - Patient Data Vitals - Most Recent: Last Vital Signs Temp 36.1 C 06/05/20 10:00 Pulse 68 06/05/20 10:00 Resp 20 06/05/20 10:00 BP 138/71 06/05/20 10:00 Pulse Ox 95 06/05/20 10:00 Weight - Most Recent: 66.633 kg I&O - Last 24 hours: Intake & Output 06/04/20 06/05/20 06/05/20 22:59 06:59 14:59 Intake Total 1750 300 Balance 1750 300 Lab Results - Last 24 hrs: Laboratory Results - last 24 hr 06/04/20 06/04/20 06/04/20 Range/Units 11:57 16:58 21:31 WBC (4.0-11.0) K/uL RBC (4.30-5.90) M/uL Hgb (12.0-16.0) g/dL Hct (36.0-46.0) % MCV (80.0-98.0) fL MCH (27.0-32.0) pg MCHC (31.0-37.0) g/dL RDW Std Deviation (28.0-62.0) fl RDW Coeff of Geraldine (11.0-15.0) % Plt Count (150-400) K/uL MPV (7.40-12.00) fL Neut % (Auto) (48.0-80.0) % Lymph % (Auto) (16.0-40.0) % [place] % (Auto) (0.0-15.0) % Eos % (Auto) (0.0-7.0) % Baso % (Auto) (0.0-1.5) % Neut # (Auto) (1.4-5.7) K/uL Lymph # (Auto) (0.6-2.4) K/uL [place] # (Auto) (0.0-0.8) K/uL Eos # (Auto) (0.0-0.7) K/uL Baso # (Auto) (0.0-0.1) K/uL Nucleated RBC % /100WBC Nucleated RBCs # K/uL Sodium (136-145) mmol/L Potassium (3.5-5.1) mmol/L Chloride (98-107) mmol/L Carbon Dioxide (21.0-32.0) mmol/L BUN (7.0-18.0) mg/dL Creatinine (0.6-1.0) mg/dL Est Cr Clr Drug Dosing mL/min Estimated GFR (MDRD) ml/min Glucose (74-106) mg/dL POC Glucose 161 H 285 H (60-110) mg/dL Calcium (8.5-10.1) mg/dL Total Bilirubin 0.2 (0.2-1.0) mg/dL Direct Bilirubin 0.10 (0.0-0.5) mg/dL Indirect Bilirubin 0.10 AST 10 L (15-37) IU/L ALT 17 (14-63) IU/L Alkaline Phosphatase 38 L (46-116) U/L Total Protein 8.1 (6.4-8.2) g/dL Albumin 3.4 (3.4-5.0) g/dL Globulin 4.7 H (2.6-4.0) g/dL Albumin/Globulin Ratio 0.7 L (0.9-1.6) 06/05/20 06/05/20 06/05/20 Range/Units 05:50 05:50 08:37 WBC 6.60 (4.0-11.0) K/uL RBC 4.07 L (4.30-5.90) M/uL Hgb 11.4 L (12.0-16.0) g/dL Hct 35.5 L (36.0-46.0) % MCV 87.2 (80.0-98.0) fL MCH 28.0 (27.0-32.0) pg MCHC 32.1 (31.0-37.0) g/dL RDW Std Deviation 47.3 (28.0-62.0) fl RDW Coeff of Geraldine 15 (11.0-15.0) % Plt Count 422 H (150-400) K/uL MPV 10.70 (7.40-12.00) fL Neut % (Auto) 72.2 (48.0-80.0) % Lymph % (Auto) 12.4 L (16.0-40.0) % [place] % (Auto) 15.2 H (0.0-15.0) % Eos % (Auto) 0.0 (0.0-7.0) % Baso % (Auto) 0.2 (0.0-1.5) % Neut # (Auto) 4.8 (1.4-5.7) K/uL Lymph # (Auto) 0.8 (0.6-2.4) K/uL [place] # (Auto) 1.0 H (0.0-0.8) K/uL Eos # (Auto) 0.0 (0.0-0.7) K/uL Baso # (Auto) 0.0 (0.0-0.1) K/uL Nucleated RBC % 0.0 /100WBC Nucleated RBCs # 0 K/uL Sodium 138 (136-145) mmol/L Potassium 3.7 (3.5-5.1) mmol/L Chloride 102 (98-107) mmol/L Carbon Dioxide 24.6 (21.0-32.0) mmol/L BUN 31 H (7.0-18.0) mg/dL Creatinine 1.2 H (0.6-1.0) mg/dL Est Cr Clr Drug Dosing 27.30 mL/min Estimated GFR (MDRD) 43.3 ml/min Glucose 189 H (74-106) mg/dL POC Glucose 167 H (60-110) mg/dL Calcium 9.2 (8.5-10.1) mg/dL Total Bilirubin (0.2-1.0) mg/dL Direct Bilirubin (0.0-0.5) mg/dL Indirect Bilirubin AST (15-37) IU/L ALT (14-63) IU/L Alkaline Phosphatase (46-116) U/L Total Protein (6.4-8.2) g/dL Albumin (3.4-5.0) g/dL Globulin (2.6-4.0) g/dL Albumin/Globulin Ratio (0.9-1.6) Med Orders - Current: Current Medications Dexamethasone (Dexamethasone) 6 mg PO DAILY [facility] Last Admin: 06/05/20 08:42 Dose: 6 mg Documented by: Dextrose/Water (Dextrose 50% In Water) 50 ml IV ASDIRECTED PRN PRN Reason: Hypoglycemia Enoxaparin Sodium (Lovenox) 40 mg SUBCUT Q24H [facility] Last Admin: 06/05/20 08:42 Dose: 40 mg Documented by: Glucagon (Glucagen) 1 mg IM ASDIRECTED PRN PRN Reason: Hypoglycemia Remdesivir 100 mg/ Sodium (Chloride) 100 mls @ 100 mls/hr IV BEDTIME YUDI Stop: 06/07/20 21:59 Insulin Aspart (Novolog) 0 unit SUBCUT TIDAC [facility]; Protocol Last Admin: 06/05/20 11:36 Dose: 4 unit Documented by: Sodium Chloride (Saline Flush) 10 ml FLUSH ASDIRECTED PRN PRN Reason: Keep Vein Open Last Admin: 06/03/20 12:57 Dose: 10 ml Documented by: Sodium Chloride (Saline Flush) 2.5 ml FLUSH ASDIRECTED PRN PRN Reason: Keep Vein Open Last Admin: 06/03/20 12:57 Dose: 2.5 ml Documented by: Discontinued Medications Dexamethasone (Decadron) 6 mg IVPUSH ONETIME ONE Stop: 06/03/20 16:08 Last Admin: 06/03/20 16:45 Dose: 6 mg Documented by: Enoxaparin Sodium (Lovenox) 40 mg SUBCUT BEDTIME YUDI Enoxaparin Sodium (Lovenox) 40 mg SUBCUT 0200 [facility] Last Admin: 06/04/20 04:23 Dose: Not Given Documented by: Remdesivir 200 mg/ Sodium (Chloride) 250 mls @ 250 mls/hr IV ONETIME ONE Stop: 06/03/20 21:18 Last Admin: 06/04/20 03:57 Dose: 250 mls/hr Documented by: Remdesivir 100 mg/ Sodium (Chloride) 100 mls @ 100 mls/hr IV BEDTIME YUDI Stop: 06/07/20 21:59 Last Admin: 06/04/20 21:08 Dose: 100 mls/hr Documented by: Iopamidol (Isovue Multipack-370 (76%)) 75 ml IVPUSH ONETIME ONE Stop: 06/03/20 17:05 Last Admin: 06/03/20 17:04 Dose: 75 ml Documented by:
[2020-06-05] MEDS ORDERED: REMDESIVIR 100 MG in Sodium Chloride 0.9% 100 ML IV SCH (21:00)
== END 2020-06-05 16:30 | disposition home or self-care (01) | DRG 179 ==
LOC: MW.ED 12:11 → MW.MS 16:07
PROVIDERS: ADMIT Internal Medicine; ATTEND Internal Medicine
PROC: XW033E5 Introduction of Remdesivir Anti-infective into Peripheral Vein, Percutaneous Approach, New Technology Group 5 (ICD-10-PCS; principal; 2020-06-03)
DX: U07.1 COVID-19 (principal); R09.02 Hypoxemia; E11.9 Type 2 diabetes mellitus without complications; I10 Essential (primary) hypertension; G47.33 Obstructive sleep apnea (adult) (pediatric); I50.9 Heart failure, unspecified; H91.90 Unspecified hearing loss, unspecified ear; H54.7 Unspecified visual loss; I25.10 Atherosclerotic heart disease of native coronary artery without angina pectoris; I11.0 Hypertensive heart disease with heart failure; J44.9 Chronic obstructive pulmonary disease, unspecified; E78.00 Pure hypercholesterolemia, unspecified; Z20.828 Contact with and (suspected) exposure to other viral communicable diseases; Z87.01 Personal history of pneumonia (recurrent); Z99.81 Dependence on supplemental oxygen; Z88.8 Allergy status to other drugs, medicaments and biological substances; Z98.890 Other specified postprocedural states; Z86.73 Personal history of transient ischemic attack (TIA), and cerebral infarction without residual deficits
CPT/HCPCS: 36415; 71045; 71045-26; 71275; 71275-26; 80048; 80053; 80076; 81001; 82962; 84484; 85025; 85379; 93005; 93010; 99222; 99231; 99238; 99284; 99285-25; J1100; J1650; J1815-GY; J7050; J8540; Q9967; U0002